=== PATIENT | female | born 1955 | race Caucasian/White ===

== ENCOUNTER → 2017-02-26 | Outpatient (CLI) | payer OTHER ==
[~2017-02-26] MED LIST: ALBU8.5H3; CA C1TAB81 PO; CETI10TA4 PO; CITA20TA17 PO; ESTR0.5T15 PO; FISH OIL OMEGA1 EACH PO; FLUT16SP12 NS; MEDR2.5T21 PO; PRAV20TA44 PO; VITA-239 PO; [UNRECOGNIZED DRUG - CODE] PO; [UNRECOGNIZED DRUG - CODE] PO
== END ==
LOC: WC.BC 14:20
PROVIDERS: ATTEND Nurse Practitioner
DX: N64.59 Other signs and symptoms in breast (principal); N63 Unspecified lump in breast
CPT/HCPCS: 76642; 77062; G0204